=== PATIENT | female | born 1985 | race Caucasian/White ===

== ENCOUNTER 2024-10-29 10:47 | Outpatient (CLI) | payer OTHER, SELFPAY | END 2024-10-29 10:48 | disposition home or self-care (01) | LOC: NFLDREF 10-31 08:06 | PROVIDERS: PCP Family Medicine; Referring Provider Family Medicine; Visit Provider Family Medicine | DX: Z11.1 Encounter for screening for respiratory tuberculosis (principal); Z01.84 Encounter for antibody response examination | CPT/HCPCS: 86480; 86787 ==

== ENCOUNTER 2024-12-31 11:00 | Outpatient (CLI) | payer OTHER, SELFPAY | END 2024-12-31 11:01 | disposition home or self-care (01) | LOC: NFLDREF 01-02 00:48 | PROVIDERS: PCP Family Medicine; Referring Provider Family Medicine; Visit Provider Emergency Medicine | DX: R10.31 Right lower quadrant pain (principal); R80.8 Other proteinuria | CPT/HCPCS: 87086 ==

== ENCOUNTER 2024-12-31 11:43 | Outpatient (CLI) | payer OTHER, SELFPAY ==
--- NOTE | 2024-12-31 12:15 | CRLHL7_ITS ---
For Patients: As a result of the Century Cures Act, medical imaging exams and procedure reports are released immediately into your electronic medical record. You may view this report before your referring provider. If you have questions, please contact your health care provider. Indication: History of hysterectomy. History of left ovarian cyst/left ovarian torsion. Right lower quadrant abdominal pain Technique: Transabdominal and transvaginal sonographic evaluation of the pelvis was performed. Grayscale was provided. Color Doppler and spectral Doppler was performed. Transvaginal scanning was performed to better evaluate the ovaries Comparison: None Findings: The uterus is surgically absent. The right ovary measures 4.6 x 1.9 x 2.5 centimeters. This contains a complex cystic structure which is favored to be a functional cyst such as a hemorrhagic cyst. This measures 2.1 x 2.0 x 2.1 centimeters. Normal waveforms by Doppler without evidence of torsion during the time course of this exam The left ovary was not identified transabdominally or transvaginally. No left adnexal mass was observed. No free fluid in the cul-de-sac. A 6-8 week follow-up ultrasound is recommended to ensure that the complex cystic structure in the right ovary resolved Impression: 1. Surgically absent uterus. 2. Minimally complex cystic lesion in the right ovary measuring 2.1 centimeters likely a hemorrhagic cyst. No evidence of torsion. 3. Left ovary not visible transabdominally or transvaginally. No left adnexal mass observed. 4. No free fluid in the cul de sac. 5. 6-8 week follow-up ultrasound recommended to reassess the right ovary. Dictated by Magnus Greco MD @ 12/31/2024 12:36:27 PM (Electronically Signed)
== END 2024-12-31 11:44 | disposition home or self-care (01) ==
LOC: US 11:44
PROVIDERS: PCP Family Medicine; Visit Provider Emergency Medicine
DX: R10.31 Right lower quadrant pain (principal); N83.201 Unspecified ovarian cyst, right side
CPT/HCPCS: 76830; 76856; 93976